=== PATIENT | male | born 1975 | race African-American/Black ===

== ENCOUNTER 2021-07-14 19:33 | Emergency (ER) | payer OTHER, MEDICARE, MEDICAID ==
[~2021-07-14] VITALS: Ht 180.3 cm; Wt 240.0 kg
[2021-07-14 20:20] LABS: HEMATOCRIT 44.4 % (39.0-50.0); HEMOGLOBIN 14.3 g/dl (14.0-18.0); IMMATURE GRANULOCYTES 0.2 % (0.0-5.0); MEAN CELL VOLUME 83.5 fL CALC (80.0-100.0); MEAN CORPUSCULAR HGB 26.9 pG CALC (26.0-32.0); MEAN CORPUSCULAR HGB CONC 32.2 g/dL CAL (32.0-36.0); NEUT# 7.97 thou/uL (1.82-7.42); RED BLOOD COUNT 5.32 mill/uL (4.70-6.10); RED CELL DISTRI WIDTH 14.6 % (11.5-15.5)
[2021-07-14 20:35] LABS: ALBUMIN 4.3 g/dL (3.2-5.0); ALKALINE PHOSPHATASE 102 u/l (38-126); ANION GAP 11 (6-22 (CALC)); BILIRUBIN, TOTAL 0.6 mg/dL (0.0-1.4); BUN 15 mg/dL (9-20); BUN/CREATININE RATIO 11 (12-20 (CALC)); CARBON DIOXIDE 25 mmol/l (22-30); CHLORIDE 104 mmol/l (95-108); CREATININE 1.4 mg/dL (0.7-1.3); GFR 55 ML/MIN (>=60 (CALC)); GFR FOR AFR.AMER. > 60 ML/MIN (>=60 (CALC)); POTASSIUM 3.9 mmol/l (3.5-5.1); SGOT/AST 27 u/l (17-59); SODIUM 137 mmol/l (137-146); TOTAL PROTEIN 7.6 g/dL (6.3-8.2)
[2021-07-14 20:46] LABS: MYOGLOBIN 124 ng/mL (0 - 121)
[2021-07-14 23:28] VITALS: BP 131/78
== END 2021-07-14 23:30 | DRG 313 ==
LOC: ED 19:33 → EDBD 19:33 → ED 20:16
PROVIDERS: Emergency Medicine
DX: R07.89 Other chest pain (principal)